=== PATIENT | female | born 1945 | race Caucasian/White ===

== ENCOUNTER → 2020-12-13 | Day surgery (SDC) | payer MEDICARE ==
[~2020-12-13] VITALS: Ht 163 cm; Wt 59.0 kg
[~2020-12-13] MED LIST: ASP81TEC PO; CARV6.252 PO; ISOS30TA7 PO; LIDOCAINE 1% INJ 20 ML 20 ML VIAL INJ ONE; LIDOCAINE 1% INJ 20 ML 20 ML VIAL ONE; TOPI50TA4 PO
[2020-12-13 08:53] VITALS: BP 147/85
--- NOTE | 2020-12-13 09:25 | Pre-Op Note & Conscious Sedat ---
Pre-Operative Progress Note H&P Reviewed The H&P was reviewed, patient examined and no changes noted. Date H&P Reviewed: Dec 13, 2020 Time H&P Reviewed: 09:24 Conscious Sedation Pre-Proced ASA Score 2 For ASA 3 and 4: Consider anesthesia and medical clearance. Also, for patients with a history of failed moderate sedation consider anesthesia. Airway Lungs Heart ASA score ASA 1: a normal healthy patient ASA 2: a patient with a mild systemic disease (mid diabetes, controlled hypertension, obesity ASA 3: a patient with a severe systemic disease that limits activity (angina, COPD, prior Myocardial infarction) ASA 4: a patient with an incapacitating disease that is a constant threat to life (CHF, renal failure) ASA 5: a moribund patient not expected to survive 24 hrs. (ruptured aneurysm) ASA 6: a declared brain- patient whose organs are being harvested. For emergent operations, add the letter E after the classification Mallampati Classification Grade 1 Sedation Plan Plan communicated to team members, Discussed options with patient/fam, Discussed risks with patient/fam The patient is an appropriate candidate to undergo the planned procedure, sedation, and anesthesia. No sedation is planned, just local anesthesia. The patient immediately re-assessed prior to indication. JUWAN CASE JR, MD Dec 13, 2020 09:24
--- NOTE | 2020-12-13 09:47 | Cardiac Cath Report ---
CARDIAC CATHETERIZATION DATE OF PROCEDURE: 12/13/2020 INDICATION: Loop recorder causing discomfort for the patient and near end-of-life. HISTORY: The patient is a 75 year old female who underwent a loop recorder implantation at an outside facility. There has been no arrhythmias identified on the device. The inferior margin is pushing outward and causing discomfort for the patient. She wants to have the device removed. PROCEDURES PERFORMED: 1. Loop recorder explantation. PROCEDURE DESCRIPTION: After informed consent and in the fasting state, the patient was prepped and draped in the usual sterile fashion. The superficial and subcutaneous tissues were infiltrated with 2% lidocaine for local anesthesia. A small incision was made at the superior margin of the device. Using blunt dissection, the device was located and removed. Dermabond was then applied for skin closure. A sterile dressing was applied. IMPRESSION: Status post successful loop recorder explantation.. JUWAN CASE JR, MD Dec 13, 2020 09:47
== END ==
LOC: CATH 10:00
PROVIDERS: ATTEND Internal Medicine Cardiovascular Disease
DX: T82.897A Other specified complication of cardiac prosthetic devices, implants and grafts, initial encounter (principal); I10 Essential (primary) hypertension; E78.5 Hyperlipidemia, unspecified; G40.909 Epilepsy, unspecified, not intractable, without status epilepticus; E03.9 Hypothyroidism, unspecified; E78.2 Mixed hyperlipidemia; Z79.02 Long term (current) use of antithrombotics/antiplatelets; Z79.899 Other long term (current) drug therapy; Z79.890 Hormone replacement therapy; Z98.51 Tubal ligation status; Z90.89 Acquired absence of other organs; Z86.73 Personal history of transient ischemic attack (TIA), and cerebral infarction without residual deficits; Z95.9 Presence of cardiac and vascular implant and graft, unspecified
CPT/HCPCS: 33286

== ENCOUNTER → 2022-08-29 | Outpatient (CLI) | payer MEDICARE ==
[~2022-08-29] MED LIST changes: -LIDOCAINE 1% INJ 20 ML 20 ML VIAL INJ ONE; -LIDOCAINE 1% INJ 20 ML 20 ML VIAL ONE
[2022-08-29 14:54] LABS: CHOLESTEROL 233 MG/DL (< 200); HDL CHOLESTEROL 44 MG/DL (40-60); TRIGLYCERIDES 168 MG/DL (<150); VLDL CHOLESTEROL 34 MG/DL (5-40)
== END ==
LOC: LAB FS 09:21
PROVIDERS: ATTEND Family Medicine
DX: I10 Essential (primary) hypertension (principal); E03.9 Hypothyroidism, unspecified
CPT/HCPCS: 36415; 80061